=== PATIENT | female | born 1940 | race American Indian/Alaskan Native ===

== ENCOUNTER 2021-02-23 21:02 | Emergency (ER) | payer MEDICARE ==
[2021-02-23 22:14] LABS: Basophils # (Auto) 0.1 K/mm3 (0.0-0.1); Basophils % (Auto) 0.8 % (0.0-1.8); Eosinophils # (Auto) 0.2 K/mm3 (0.0-0.4); Eosinophils % (Auto) 2.5 % (0.0-4.3); Hematocrit 35.1 % (30.3-42.9); Hemoglobin 11.4 gm/dl (10.1-14.3); Lymphocytes # (Auto) 1.6 K/mm3 (1.2-5.4); Lymphocytes % (Auto) 24.4 % (13.4-35.0); Mean Corpuscular HGB Conc 33 % (30-34); Mean Corpuscular Volume 75 fl (79-97); Monocytes # (Auto) 0.3 K/mm3 (0.0-0.8); Monocytes % (Auto) 5.1 % (0.0-7.3); Platelet Count 225 K/mm3 (140-440); Red Blood Count 4.69 M/mm3 (3.65-5.03)
[2021-02-23 22:31] LABS: Alanine Aminotransferase 12 units/L (7-56); Albumin 4.1 g/dL (3.9-5); BUN/Creatinine Ratio 20; Blood Urea Nitrogen 18 mg/dL (7-17); Calcium 9.5 mg/dL (8.4-10.2); Hemolysis Index 0
[2021-02-23 22:36] LABS: Bilirubin,Urine NEG (Negative); Blood,Urine SM (Negative); Color,Urine Straw (Yellow); Mucus,Urine FEW /HPF; Protein,Urine <15 mg/dL mg/dL (Negative); Urobilinogen,Urine < 2.0 mg/dL (<2.0)
--- NOTE | 2021-02-23 22:41 | XRay Report ---
CHEST 2 VIEWS INDICATION / CLINICAL INFORMATION: sob. COMPARISON: 02/29/2016 FINDINGS: SUPPORT DEVICES: None. HEART / MEDIASTINUM: No significant abnormality. LUNGS / PLEURA: No significant pulmonary or pleural abnormality. No pneumothorax. ADDITIONAL FINDINGS: No significant additional findings. IMPRESSION: 1. No acute findings. Signer Name: Ayad Campbell DO Signed: 02/23/2021 10:37 PM Workstation Name: [id number]
--- NOTE | 2021-02-23 23:21 | Emergency Department Report ---
ED General Adult HPI - General Chief complaint: High BP Stated complaint: BLOOD PRESSURE HIGH Time Seen by Provider: 02/23/21 21:58 Source: patient Mode of arrival: Ambulatory Limitations: No Limitations - History of Present Illness Initial comments: 80-year-old female the past medical history of hypertension, elevated cholesterol, and chronic memory problems presents to the hospital complaining of elevated blood pressure x1 day. Patient checks her blood pressure often. Patient showed me documentation of her blood pressure results of the last 2 da ys. It appears her baseline is in the 140s to 150s over 70s. His evening blood pressure continued to increase to as high as 216/107 prior to ED arrival and therefore patient came to the ED for evaluation. Patient lives alone without any nearby family members. She states throughout the day she has felt tired and hot but has denied headache, chest pain, worsening in baseline poor vision, shortness of breath, abdominal pain, weakness, or near syncope. Patient has been compliant with her losartan/HCTZ 100 mg / 12.5 mg every morning, carvedilol 25 mg twice daily, and nifedipine ER 60 mg at night. Patient states she does not take the nifedipine the same time a day every night because sometimes she forgets. Initial blood pressure here document 191/91 on triage repeat shows spontaneous improvement without intervention. Patient continues to remain asymptomatic at this time - Related Data Allergies Allergy/AdvReac Type Severity Reaction Status Date / Time Iodine and Iodide Containing Allergy Unknown Verified 02/29/16 12:48 Produc ED Review of Systems ROS: Stated complaint: BLOOD PRESSURE HIGH Other details as noted in HPI Comment: All other systems reviewed and negative ED Past Medical Hx - Past Medical History Previous Medical History?: Yes Hx Hypertension: Yes Additional medical history: chol - Surgical History Past Surgical History?: Yes Additional Surgical History: hysterectomy - Social History Smoking Status: Never Smoker Substance Use Type: None ED Physical Exam - General Limitations: No Limitations - Other Other exam information: General: No acute distress Head: Atraumatic Eyes: normal appearance ENT: Moist mucous membranes Neck: Normal appearance, no midline tenderness Chest: Clear to auscultation bilaterally CV: Regular rate and rhythm Abdomen: Soft, normal bowel sounds, nontender, nondistended, no rebound or guarding Back: Normal inspection Extremity: Normal inspection, full range of motion Neuro: Alert O x 3, no facial asymmetry, speech clear, no gross motor sensory deficit Psych: Appropriate behavior Skin: No rash ED Course Vital Signs 02/23/21 02/23/21 21:07 23:02 Temperature 97.7 F Pulse Rate 92 H 74 Respiratory 19 15 Rate Blood Pressure 191/91 Blood Pressure 153/91 [Left] O2 Sat by Pulse 97 100 Oximetry ED Medical Decision Making - Lab Data Result diagrams: 02/23/21 21:50 02/23/21 21:50 Lab Results 02/23/21 02/23/21 02/23/21 Range/Units 21:50 21:50 22:06 WBC 6.5 (4.5-11.0) K/mm3 RBC 4.69 (3.65-5.03) M/mm3 Hgb 11.4 (10.1-14.3) gm/dl Hct 35.1 (30.3-42.9) % MCV 75 L (79-97) fl MCH 24 L (28-32) pg MCHC 33 (30-34) % RDW 15.0 (13.2-15.2) % Plt Count 225 (140-440) K/mm3 Lymph % (Auto) 24.4 (13.4-35.0) % [place] % (Auto) 5.1 (0.0-7.3) % Eos % (Auto) 2.5 (0.0-4.3) % Baso % (Auto) 0.8 (0.0-1.8) % Lymph # (Auto) 1.6 (1.2-5.4) K/mm3 [place] # (Auto) 0.3 (0.0-0.8) K/mm3 Eos # (Auto) 0.2 (0.0-0.4) K/mm3 Baso # (Auto) 0.1 (0.0-0.1) K/mm3 Seg Neutrophils % 67.2 (40.0-70.0) % Seg Neutrophils # 4.3 (1.8-7.7) K/mm3 Sodium 138 (137-145) mmol/L Potassium 3.9 (3.6-5.0) mmol/L Chloride 103.5 (98-107) mmol/L Carbon Dioxide 22 (22-30) mmol/L Anion Gap 16 mmol/L BUN 18 H (7-17) mg/dL Creatinine 0.9 (0.6-1.2) mg/dL Estimated GFR > 60 ml/min BUN/Creatinine Ratio 20 % Glucose 148 H (65-100) mg/dL Calcium 9.5 (8.4-10.2) mg/dL Total Bilirubin 0.20 (0.1-1.2) mg/dL AST 13 (5-40) units/L ALT 12 (7-56) units/L Alkaline Phosphatase 82 (35-129) units/L Troponin T < 0.010 (0.00-0.029) ng/mL Total Protein 7.7 (6.3-8.2) g/dL Albumin 4.1 (3.9-5) g/dL Albumin/Globulin Ratio 1.1 % Urine Color Straw (Yellow) Urine Turbidity Clear (Clear) Urine pH 5.0 (5.0-7.0) Ur Specific [place] 1.005 (1.003-1.030) Urine Protein <15 mg/dl (Negative) mg/dL Urine Glucose (UA) Neg (Negative) mg/dL Urine Ketones Neg (Negative) mg/dL Urine Blood Sm (Negative) Urine Nitrite Neg (Negative) Urine Bilirubin Neg (Negative) Urine Urobilinogen < 2.0 (<2.0) mg/dL Ur Leukocyte Esterase Neg (Negative) Urine WBC (Auto) 2.0 (0.0-6.0) /HPF Urine RBC (Auto) 1.0 (0.0-6.0) /HPF U Epithel Cells (Auto) 2.0 (0-13.0) /HPF Urine Mucus Few /HPF - EKG Data -: EKG Interpreted by Pa EKG shows normal: sinus rhythm, intervals (QTC 415), QRS complexes (qrsd 89), ST-T waves Rate: normal - Radiology Data Radiology results: report reviewed (cxr: naf) - Medical Decision Making 80-year-old female presents to the hospital worried that her blood pressure was too high this evening. Patient is main symptoms with feeling tired and hot throughout the day without any pain. Patient does not have any signs or symptoms of hypertensive emergency as indicated by her symptoms, labs, and EKG. Patient's blood pressure has decreased spontaneously likely the result of her evening dose of nifedipine. Patient encouraged to take her nifedipine the same time every evening. Patient has an appointment with her medical assisting program director Dr. Rivers 2 days and her primary care doctor Dr. Broderick in 4 days Critical Care Time: No Critical care attestation.: If time is entered above; I have spent that time in minutes in the direct care of this critically ill patient, excluding procedure time. ED Disposition Clinical Impression: Chronic hypertension Disposition: HOME / SELF CARE / HOMELESS Is pt being admited?: No Does the pt Need Aspirin: No Condition: Stable Instructions: Hypertension (ED), Hypertension, Adult, [id number] Additional Instructions: Continue to take medication as prescribed. Follow-up with your doctor or doctor/clinic provided. Return if symptoms worsen as indicated by your discharge instructions. Referrals: SEBASTIAN RIVERS MD [Primary Care Provider] - 2-3 Days Time of Disposition: 23:25
[2021-02-23 23:36] VITALS: BP 117/84
--- NOTE | 2021-02-24 11:04 | Electrocardiograph Report ---
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
== END 2021-02-23 23:51 | disposition home or self-care (01) ==
LOC: ED 21:02
DX: I10 Essential (primary) hypertension (principal); R53.83 Other fatigue; Z90.710 Acquired absence of both cervix and uterus; Z91.041 Radiographic dye allergy status
CPT/HCPCS: 36415; 71046; 80053; 81001; 84484; 85025; 93005; 99283

== ENCOUNTER 2021-04-30 10:23 | Emergency (ER) | payer MEDICARE ==
--- NOTE | 2021-04-30 13:17 | Emergency Department Report ---
ED General Adult HPI - General Chief complaint: Medical Clearance Stated complaint: My blood pressure was high, and I felt weak Time Seen by Provider: 04/30/21 12:08 Source: patient, RN notes reviewed Mode of arrival: Ambulatory Limitations: No Limitations - History of Present Illness Initial comments: Primary CARE doctor: Dr. Navarro The patient is a pleasant 80-year-old female. She is up-to-date with her COVID- 19 vaccinations. She has a history of hypertension. Patient presents to the ER today with request for medical clearance and reassurance. The patient reports that she was in her usual state of health, when she began to feel generally weak this morning. This was painless, and not lateralizing. She states that this episode is resolved. She denies headache, neck pain, chest pain, abdominal pain, shortness of breath, urinary symptoms, loss of taste and smell, and loss of vision. She also denies ataxia, and reports that her blood pressure medication was changed around 2 months ago, but otherwise, denies recent medical changes, and reports no [id number] supplements. She reports that she feels back to her usual state of health. She specifically denies bright red blood per rectum. She also denies hematemesis -: Gradual Severity scale (0 -10): 0 Consistency: now resolved Improves with: none Worsens with: none - Related Data Allergies Allergy/AdvReac Type Severity Reaction Status Date / Time Iodine and Iodide Containing Allergy Unknown Verified 04/30/21 10:32 Produc ED Review of Systems ROS: Stated complaint: dizzy /bp high Other details as noted in HPI Constitutional: malaise, weakness. denies: fever Eyes: denies: eye discharge, vision change ENT: denies: epistaxis Respiratory: denies: cough Cardiovascular: denies: chest pain, syncope Gastrointestinal: denies: abdominal pain, hematemesis, melena, hematochezia Genitourinary: denies: dysuria Musculoskeletal: myalgia (Chronic) Neurological: weakness. denies: headache, numbness, paresthesias, abnormal gait Hematological/Lymphatic: denies: easy bleeding ED Past Medical Hx - Past Medical History Hx Hypertension: Yes Additional medical history: chol - Surgical History Additional Surgical History: hysterectomy - Social History Smoking Status: Never Smoker Substance Use Type: None ED Physical Exam - General Limitations: No Limitations General appearance: alert, in no apparent distress - Head Head exam: Present: atraumatic, normocephalic - Eye Eye exam: Present: normal appearance, EOMI, other (Visual acuity intact to fin yoselyn counting, color perception, reading at a close distance). Absent: nystagmus - ENT ENT exam: Present: normal exam, normal orophraynx, mucous membranes moist, normal external ear exam - Neck Neck exam: Present: normal inspection, full ROM. Absent: tenderness, meningismus - Respiratory Respiratory exam: Present: normal lung sounds bilaterally. Absent: respiratory distress, wheezes, rales, rhonchi, stridor, decreased breath sounds - Cardiovascular Cardiovascular Exam: Present: regular rate, bradycardia, normal heart sounds. Absent: tachycardia, irregular rhythm, systolic murmur, diastolic murmur, rubs, gallop - GI/Abdominal GI/Abdominal exam: Present: soft. Absent: distended, tenderness, guarding, rebound, rigid, pulsatile mass - Extremities Exam Extremities exam: Present: normal inspection, full ROM, pedal edema (1+ edema in the bilateral lower extremity), other (2+ pulses noted in the bilateral upper and lower extremities. There is no palpable cord. negative Homans sign. Muscular compartments are soft. The pelvis is stable.). Absent: calf tenderness - Back Exam Back exam: Present: normal inspection, full ROM. Absent: tenderness, CVA tenderness (R), CVA tenderness (L), paraspinal tenderness, vertebral tenderness - Neurological Exam Neurological exam: Present: alert (There is no past-pointing. There is no pronator drift. There is normal [id number].), oriented X3, normal gait, other. Absent: motor sensory deficit - Psychiatric Psychiatric exam: Present: normal affect, normal mood - Skin Skin exam: Present: warm, dry, intact, normal color. Absent: rash ED Course Vital Signs 04/30/21 04/30/21 04/30/21 10:29 10:30 12:25 Temperature 97.6 F 97.6 F Pulse Rate 59 L 62 Respiratory 17 18 Rate Blood Pressure 155/78 Blood Pressure 155/78 [Left] O2 Sat by Pulse 99 100 99 Oximetry 04/30/21 04/30/21 12:27 15:25 Temperature Pulse Rate 60 56 L Respiratory 11 L 47 H Rate Blood Pressure Blood Pressure 169/73 136/59 [Left] O2 Sat by Pulse 99 100 Oximetry - Reevaluation(s) Reevaluation #1: 04/30/21 14:53 Differential diagnosis, including but not limited to: Anemia, thyroid derangement, electrolyte derangement, myocardial infarction, urinary tract infection, deconditioning, debility, encounter for medical screening examination Assessment and plan: 80-year-old female, who was afebrile, with reassuring vital signs, clinically sober with a GCS of 15, who walks with a steady gait, presenting to the ER today with complaint of painless generalized weakness, which is now resolved. Her physical examination is noncontributory. She is resting comfortably in her stretcher, and in no acute distress. Obtain appropriate laboratory studies and urinalysis. Place patient on bus monitor. Reassess. I discussed this plan of care with the patient. She articulated understanding. EKG is unchanged from prior. Reevaluation #2: 04/30/21 15:29 Patient is reassessed. She is in no acute distress. Her examination is unchanged from prior. She endorses readiness for discharge. Laboratory studies unremarkable and nonactionable. Blood pressure and heart rate stable at this time Reevaluation #3: 04/30/21 15:30 Respiratory rate of 47 as documented in error. Patient is not tachypneic at this time. She is breathing comfortably. Respiratory rate 12-15 on my direct examination ED Medical Decision Making - Lab Data Result diagrams: 04/30/21 14:16 04/30/21 14:16 Vital Signs 04/30/21 04/30/21 04/30/21 10:29 10:30 12:25 Temperature 97.6 F 97.6 F Pulse Rate 59 L 62 Respiratory 17 18 Rate Blood Pressure 155/78 Blood Pressure 155/78 [Left] O2 Sat by Pulse 99 100 99 Oximetry 04/30/21 12:27 Temperature Pulse Rate 60 Respiratory 11 L Rate Blood Pressure Blood Pressure 169/73 [Left] O2 Sat by Pulse 99 Oximetry Lab Results 04/30/21 Range/Units 14:16 WBC 5.2 (4.5-11.0) K/mm3 RBC 5.21 H (3.65-5.03) M/mm3 Hgb 12.1 (10.1-14.3) gm/dl Hct 39.4 (30.3-42.9) % MCV 76 L (79-97) fl MCH 23 L (28-32) pg MCHC 31 (30-34) % RDW 14.8 (13.2-15.2) % Plt Count 228 (140-440) K/mm3 Lymph % (Auto) 27.9 (13.4-35.0) % [place] % (Auto) 4.6 (0.0-7.3) % Eos % (Auto) 2.0 (0.0-4.3) % Baso % (Auto) 1.0 (0.0-1.8) % Lymph # (Auto) 1.4 (1.2-5.4) K/mm3 [place] # (Auto) 0.2 (0.0-0.8) K/mm3 Eos # (Auto) 0.1 (0.0-0.4) K/mm3 Baso # (Auto) 0.1 (0.0-0.1) K/mm3 Seg Neutrophils % 64.5 (40.0-70.0) % Seg Neutrophils # 3.3 (1.8-7.7) K/mm3 Lab Results 04/30/21 04/30/21 04/30/21 Range/Units 14:16 14:16 14:16 WBC 5.2 (4.5-11.0) K/mm3 RBC 5.21 H (3.65-5.03) M/mm3 Hgb 12.1 (10.1-14.3) gm/dl Hct 39.4 (30.3-42.9) % MCV 76 L (79-97) fl MCH 23 L (28-32) pg MCHC 31 (30-34) % RDW 14.8 (13.2-15.2) % Plt Count 228 (140-440) K/mm3 Lymph % (Auto) 27.9 (13.4-35.0) % [place] % (Auto) 4.6 (0.0-7.3) % Eos % (Auto) 2.0 (0.0-4.3) % Baso % (Auto) 1.0 (0.0-1.8) % Lymph # (Auto) 1.4 (1.2-5.4) K/mm3 [place] # (Auto) 0.2 (0.0-0.8) K/mm3 Eos # (Auto) 0.1 (0.0-0.4) K/mm3 Baso # (Auto) 0.1 (0.0-0.1) K/mm3 Seg Neutrophils % 64.5 (40.0-70.0) % Seg Neutrophils # 3.3 (1.8-7.7) K/mm3 Sodium 137 (137-145) mmol/L Potassium 4.2 (3.6-5.0) mmol/L Chloride 100.8 (98-107) mmol/L Carbon Dioxide 23 (22-30) mmol/L Anion Gap 17 mmol/L BUN 14 (7-17) mg/dL Creatinine 0.8 (0.6-1.2) mg/dL Estimated GFR > 60 ml/min BUN/Creatinine Ratio 18 % Glucose 103 H (65-100) mg/dL Calcium 9.7 (8.4-10.2) mg/dL Magnesium 2.10 (1.7-2.3) mg/dL Total Bilirubin 0.30 (0.1-1.2) mg/dL AST 14 (5-40) units/L ALT 10 (7-56) units/L Alkaline Phosphatase 82 (35-129) units/L Total Creatine Kinase 66 (30-135) units/L Troponin T < 0.010 (0.00-0.029) ng/mL Total Protein 8.1 (6.3-8.2) g/dL Albumin 4.1 (3.9-5) g/dL Albumin/Globulin Ratio 1.0 % Urine Color (Yellow) Urine Turbidity (Clear) Urine pH (5.0-7.0) Ur Specific [place] (1.003-1.030) Urine Protein (Negative) mg/dL Urine Glucose (UA) (Negative) mg/dL Urine Ketones (Negative) mg/dL Urine Blood (Negative) Urine Nitrite (Negative) Urine Bilirubin (Negative) Urine Urobilinogen (<2.0) mg/dL Ur Leukocyte Esterase (Negative) Urine WBC (Auto) (0.0-6.0) /HPF Urine RBC (Auto) (0.0-6.0) /HPF U Epithel Cells (Auto) (0-13.0) /HPF Urine Mucus /HPF 12//21 Range/Units Unknown WBC (4.5-11.0) K/mm3 RBC (3.65-5.03) M/mm3 Hgb (10.1-14.3) gm/dl Hct (30.3-42.9) % MCV (79-97) fl MCH (28-32) pg MCHC (30-34) % RDW (13.2-15.2) % Plt Count (140-440) K/mm3 Lymph % (Auto) (13.4-35.0) % [place] % (Auto) (0.0-7.3) % Eos % (Auto) (0.0-4.3) % Baso % (Auto) (0.0-1.8) % Lymph # (Auto) (1.2-5.4) K/mm3 [place] # (Auto) (0.0-0.8) K/mm3 Eos # (Auto) (0.0-0.4) K/mm3 Baso # (Auto) (0.0-0.1) K/mm3 Seg Neutrophils % (40.0-70.0) % Seg Neutrophils # (1.8-7.7) K/mm3 Sodium (137-145) mmol/L Potassium (3.6-5.0) mmol/L Chloride (98-107) mmol/L Carbon Dioxide (22-30) mmol/L Anion Gap mmol/L BUN (7-17) mg/dL Creatinine (0.6-1.2) mg/dL Estimated GFR ml/min BUN/Creatinine Ratio % Glucose (65-100) mg/dL Calcium (8.4-10.2) mg/dL Magnesium (1.7-2.3) mg/dL Total Bilirubin (0.1-1.2) mg/dL AST (5-40) units/L ALT (7-56) units/L Alkaline Phosphatase (35-129) units/L Total Creatine Kinase (30-135) units/L Troponin T (0.00-0.029) ng/mL Total Protein (6.3-8.2) g/dL Albumin (3.9-5) g/dL Albumin/Globulin Ratio % Urine Color Colorless (Yellow) Urine Turbidity Clear (Clear) Urine pH 8.0 H (5.0-7.0) Ur Specific [place] 1.003 (1.003-1.030) Urine Protein <15 mg/dl (Negative) mg/dL Urine Glucose (UA) Neg (Negative) mg/dL Urine Ketones Neg (Negative) mg/dL Urine Blood Neg (Negative) Urine Nitrite Neg (Negative) Urine Bilirubin Neg (Negative) Urine Urobilinogen < 2.0 (<2.0) mg/dL Ur Leukocyte Esterase Tr (Negative) Urine WBC (Auto) 4.0 (0.0-6.0) /HPF Urine RBC (Auto) < 1.0 (0.0-6.0) /HPF U Epithel Cells (Auto) 1.0 (0-13.0) /HPF Urine Mucus Few /HPF - EKG Data -: EKG Interpreted by Me Rate: bradycardia - EKG Data 04/30/21 14:53 The EKG is interpreted at 10: 32 Sinus rhythm, bradycardia, rate 56 bpm. Normal axis, normal P wave axis. Poor R wave progression. Left ventricular hypertrophy. Abnormal EKG. Not a STEMI. Nonspecific T wave abnormalities. MO interval 218 ms. QTc 413 ms. This EKG appears to be unchanged from prior EKG from February 2021 Critical care attestation.: If time is entered above; I have spent that time in minutes in the direct care of this critically ill patient, excluding procedure time. ED Disposition Clinical Impression: History of weakness, History of hypertension, Encounter for medical screening examination Disposition: 01 HOME / SELF CARE / HOMELESS Is pt being admited?: No Does the pt Need Aspirin: No Condition: Good Additional Instructions: Please continue current outpatient medications. Please follow-up with your outpatient primary care doctor within the next 5 to 7 days for a repeat checkup and evaluation. Please return to the emergency room right away with new pain, worsened pain, migration of pain, projectile vomiting, change in mental status, confusion, inability tolerate liquid feeds, new, worsened or different symptoms not present on the initial emergency room evaluation Referrals: BRAD NAVARRO MD [Staff Physician] - 3-5 Days
[2021-04-30 14:47] LABS: Basophils # (Auto) 0.1 K/mm3 (0.0-0.1); Eosinophils # (Auto) 0.1 K/mm3 (0.0-0.4); Hematocrit 39.4 % (30.3-42.9); Hemoglobin 12.1 gm/dl (10.1-14.3); Lymphocytes # (Auto) 1.4 K/mm3 (1.2-5.4); Lymphocytes % (Auto) 27.9 % (13.4-35.0); Mean Corpuscular HGB Conc 31 % (30-34); Mean Corpuscular Volume 76 fl (79-97); Monocytes # (Auto) 0.2 K/mm3 (0.0-0.8); Monocytes % (Auto) 4.6 % (0.0-7.3); Platelet Count 228 K/mm3 (140-440); Red Blood Count 5.21 M/mm3 (3.65-5.03); Red Cell Distribution Width 14.8 % (13.2-15.2)
[2021-04-30 15:01] LABS: Alanine Aminotransferase 10 units/L (7-56); Albumin 4.1 g/dL (3.9-5); BUN/Creatinine Ratio 18; Blood Urea Nitrogen 14 mg/dL (7-17); Calcium 9.7 mg/dL (8.4-10.2); Hemolysis Index 9
[2021-04-30 15:09] LABS: Bilirubin,Urine NEG (Negative); Blood,Urine NEG (Negative); Color,Urine Colorless (Yellow); Mucus,Urine FEW /HPF; Protein,Urine <15 mg/dL mg/dL (Negative); RBC,Urine < 1.0 /HPF (0.0-6.0); Urobilinogen,Urine < 2.0 mg/dL (<2.0)
[2021-04-30 15:25] VITALS: BP 136/59
--- NOTE | 2021-05-04 10:25 | Electrocardiograph Report ---
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
== END 2021-04-30 15:44 | disposition home or self-care (01) ==
LOC: ED 10:23
DX: I10 Essential (primary) hypertension (principal); R53.1 Weakness; Z90.710 Acquired absence of both cervix and uterus; Z88.6 Allergy status to analgesic agent; Z79.899 Other long term (current) drug therapy
CPT/HCPCS: 36415; 80053; 81001; 82550; 83735; 84443; 84484; 85025; 93005; 99283